=== PATIENT | female | born 1990 ===

== ENCOUNTER 2016-11-21 19:51 | Inpatient (IN) | payer BC, OTHER ==
[2016-11-21 20:31] VITALS: BMI 31.4
--- NOTE | 2016-11-21 20:52 | OBHP ---
Datetime: 11/21/2016 20:39 IP Adm Impression: Term, intrauterine IP Adm Impression Other: Irregular Contractions IP Admit Plan: Admit to unit; Initiate labor protocol Admit Comment, IP Provider: 26yo with IUP at 39.6wks presents ere today c/o intermittent pelvic cramps. She also reported not feeling good movements. She reports an uncomplicated c ourse. GBS -Negative. [place]- Occasional ctxs, FHR- category 1 , Vtx, Cx- 0/30/-3. Assesment: IUP at 39+ weeks with Pelvic pain Plan as Per Dr Gonzalez, Admit to Labor and delivery For cervical ripening with Cervidil. Pelvic Type - PN: Adequate Extremities - PN: Normal Abdomen - PN: Normal Back - PN: Normal Breast - PN: Normal Lungs - PN: Normal Heart - PN: Normal Thyroid - PN: Normal Neurologic - PN: Normal HEENT - PN: Normal General - PN: Normal Presentation-Admit: Vertex FHR - Baseline A Provider: 130 Membranes, Provider: Intact Comments, ACOG Physical Exam: Abd: Soft, NT, BS- Present Gestation - Est Wks by US: 39.6 EGA AdmitDate IP: 39.6 Vital Signs Provider: Reviewed IP Chief Complaint: Uterine contractions; Decreased movement; Maternal discomfort NICHD Variability Prov Fetus A: Moderate 6-25bpm NICHD Accel Fetus A IP Provider: [id number] FHR Category Provider Fetus A: Category I NICHD Decel Fetus A IP Provider: None Dilatation, Provider: 0 Effacement, Provider: 30 Station, Provider: -3 Genitourinary Exam: Normal DTRs - PN: Normal
[2016-11-21] MEDS: Lactated Ringer's 1,000 ML IV SCH (20:55)
[2016-11-21] MEDS ORDERED: Azithromycin 500mg/250ML NS 500 MG/250 ML BAG IVPB ONE (21:00)
[2016-11-21 21:20] LABS: BASO % 0.2 % (0.0-2.0); EOS # 0.1 K/uL (0.0-0.7); EOS % 0.8 % (0.0-4.0); HEMOGLOBIN 13.5 g/dL (11.0-16.0); LYMPH # 1.9 K/uL (1.0-4.3); LYMPH % 19.4 % (20.0-40.0); MEAN CORPUSCULAR HEMOGLOBIN 31.6 pg (27.0-31.0); MEAN CORPUSCULAR HGB CONC 33.6 g/dL (33.0-37.0); MEAN PLATELET VOLUME 8.8 fL (7.2-11.7); MONO # 0.8 K/uL (0.0-0.8); MONO % 8.4 % (0.0-10.0); NEUT # 7.2 K/uL (1.8-7.0); NEUT % 71.2 % (50.0-75.0); NRBC % 0.1 % (0.0-2.0); RBC 4.29 Mil/uL (3.80-5.20); RED CELL DISTRIBUTION WIDTH 14.1 % (11.5-14.5)
[2016-11-21 21:26] LABS: SQUAMOUS EPITHIAL 4 /hpf (0-5); URINE AMORPHOUS SEDIMENT OCC /ul (<OCC); URINE BACTERIA RARE (<OCC); URINE BILIRUBIN NEGATIVE (NEGATIVE); URINE BLOOD 1+ (NEGATIVE); URINE CALCIUM OXALATE CRYSTALS OCC /hpf (<OCC); URINE CLARITY Hazy (Clear); URINE COLOR Yellow (YELLOW); URINE GLUCOSE (UA) NORMAL (Normal); URINE LEUKOCYTE ESTERASE NEG Leu/uL (Negative); URINE NITRATE NEGATIVE (NEGATIVE); URINE PROTEIN NEGATIVE (NEGATIVE); URINE UROBILINOGEN NORMAL mg/dL (0.2-1.0)
[2016-11-21 21:28] LABS: ALBUMIN 3.3 g/dL (3.5-5.0)
[2016-11-21 21:31] LABS: AST/SGOT 20 U/L (14-36); GFR AFRICAN-AMERICAN > 60; GFR NON-AFRICAN AMERICAN > 60
[2016-11-21 21:32] LABS: ALB/GLOB RATIO 0.9 (1.0-2.1); ALT/SGPT 21 U/L (9-52); BLOOD UREA NITROGEN 9 mg/dL (7-17); CALCIUM 9.4 mg/dl (8.6-10.4)
[2016-11-22] MEDS ORDERED: Nalbuphine 20 mg/ml Inj (1 ml) ONE ×2 (04:32→06:50)
[2016-11-22] MEDS: Lactated Ringer's 1,000 ML IV SCH (04:52)
[2016-11-22] MEDS ORDERED: Nalbuphine 20 mg/ml Inj (1 ml) IVP ONE (06:46)
[2016-11-22] MEDS ORDERED: Bupivacaine 0.125%/FentaNYL 200 ML EPI ONE (07:54)
[2016-11-22] MEDS ORDERED: Nalbuphine 20 mg/ml Inj (1 ml) IVP SCH (08:00)
[2016-11-22] MEDS ORDERED: Acetaminophen-Codeine 300/30 mg Tab PO PRN (15:26)
[2016-11-22] MEDS ORDERED: Benzocaine/Menthol 20%-0.5% Topical Spray (60 ml) TOP PRN (15:32)
[2016-11-22] MEDS: Benzocaine/Menthol 20%-0.5% Topical Spray (60 ml) TOP PRN (17:11)
--- NOTE | 2016-11-22 19:36 | OBDS ---
[facility]IV[facility] PERSONNEL Delivery Doctor: Loren Gonzalez MD. Dealmaker: Tanika Finley RN Anesthesiologist: Geo LLOYD MATERNAL INFORMATION Delivery Anesthesia: Epidural Medications in Delivery: Pitocin Estimated Blood Loss (ml): 300 Placenta Cultured: No Maternal Complications: None RN Comments: to a live baby girl, attended to by Danilo Cazares and Eloy Mckeon RN. Baby on mother's a bdomen. 9:9, stable. Provider Comments: +2 on complete, pushing well to , shoulder delivered with maternal pushin g, no dystocia, VAMSHI, left shoulder anterior, placenta spontaneous and intact LABOR SUMMARY EDC: 11/22/2016 00:00 No. Babies in Womb: 1 Attempted: No Labor Anesthesia: Epidural LABOR INFORMATION Reason for Induction: Postterm Onset of Labor: 11/22/2016 07:00 Complete Dilatation: 11/22/2016 12:11 Cervical Ripening Agents: Cervidil Oxytocin: N/A Group B Beta Strep: Negative Antibiotics # of Doses: 1 Antibiotics Time of Last Dose: 2210 11/21/16 Steroids Given: None Reason Steroids Not Administered: Not Applicable MEMBRANES Membranes Rupture Method: Spontaneous Rupture of Membranes: 11/22/2016 11:34 Length of Rupture (hrs): 1.23 Amniotic Fluid Color: Light Meconium Amniotic Fluid Amount: Moderate Amniotic Fluid Odor: Normal STAGES OF LABOR Stage 1 hrs: 5 Stage 1 min: 11 Stage 2 hrs: 0 Stage 2 min: 37 Stage 3 hrs: 0 Stage 3 min: 6 Total Time in Labor hrs: 5 Total Time in Labor min: 54 VAGINAL DELIVERY Episiotomy: None Laceration Extension: Second Degree Laceration Type: Perineal Other Laceration: n/a Laceration Repair: Yes Laceration Repair Note: repaired figure of eight with 2-0 chromic deeper tissue, 2-0 chromic running locked fashion Initial Vag Sponge Count: 10 Final Vag Sponge Count: 10 Initial Vag Sharps Count: 2 Final Vag Sharps Count: 2 Sponge Count Correct: Yes Sharps Count Correct: Yes BABY A INFORMATION Infant Delivery Date/Time: 11/22/2016 12:48 Method of Delivery: Vaginal Born in Route : No : N/A Forceps: N/A Vacuum Extraction: N/A Shoulder Dystocia : No SHOULDER DYSTOCIA BABY A Infant Delivery Date/Time: 11/22/2016 12:48 PRESENTATION/POSITION BABY A Presentation: Cephalic Cephalic Presentation: Vertex Vertex Position: Left Occipital Anterior Breech Presentation: N/A PLACENTA INFORMATION BABY A Placenta Delivery Time : 11/22/2016 12:54 Placenta Method of Delivery: Spontaneous Placenta Status: Delivered SCORES BABY A Heart Rate 1 min: >100 bpm Resp Effort 1 min: Good Cry Reflex Irritability 1 min: Cough or Sneeze or Pulls Away Muscle Tone 1 min: Active Motion Color 1 min: Body [place], Extremities Blue SCORE 1 MIN: 9 Heart Rate 5 min: >100 bpm Resp Effort 5 min: Good Cry Reflex Irritability 5 min: Cough or Sneeze or Pulls Away Muscle Tone 5 min: Active Motion Color 5 min: Body [place], Extremities Blue SCORE 5 MIN: 9 INFORMATION BABY A Gestational Age at Delivery: 40.0 Gestational Status: Term Outcome : Liveborn Condition : Stable Infant Sex: Female IDENTIFICATION/MEDS BABY A ID Band Number: [id number] ID Band Location: Left Leg; Left Arm Sensor Applied: Yes Sensor Number: [id number] Sensor Location : Cord Clamp Vitamin K Given : Not Given Erythromycin Given: Not Given WEIGHT/LENGTH BABY A Birthweight (gms): 3470 Infant Weight (lb): 7 Infant Weight (oz): 10 Length Inches: 19.50 Length cms: 49.5 CORD INFORMATION BABY A No. Cord Vessels: 3 Nuchal Cord : N/A Nuchal Cord Other: n/a True Knot: 0 Cord Blood Taken: Yes Suction: Mouth; Nose ASSESSMENT BABY A Complications: None Physical Findings at Delivery: Within Normal Limits Infant Respirations: Appears Normal Manager Mac/ALS Called : No Transferred To: Remains with Mother
[2016-11-23 09:22] LABS: MEAN CORPUSCULAR HEMOGLOBIN 31.5 pg (27.0-31.0); MEAN PLATELET VOLUME 8.9 fL (7.2-11.7)
[2016-11-23 09:32] LABS: MEAN CELL VOLUME 95.1 fL (81.0-99.0); MEAN CORPUSCULAR HGB CONC 33.1 g/dL (33.0-37.0); RBC 3.61 Mil/uL (3.80-5.20); RED CELL DISTRIBUTION WIDTH 13.8 % (11.5-14.5)
[2016-11-23 09:42] LABS: HEMOGLOBIN 11.4 g/dL (11.0-16.0); WHITE BLOOD COUNT 16.5 K/uL (4.8-10.8)
[2016-11-23 16:07] VITALS: PULSE 99
[2016-11-24 00:30] VITALS: BP 90/59; RESP 20; TEMP 98.5; O2SAT 99
[2016-11-24] MEDS: Benzocaine/Menthol 20%-0.5% Topical Spray (60 ml) TOP PRN (09:37)
--- NOTE | 2016-11-24 19:02 | OBDCSUM ---
Datetime: 11/24/2016 11:34 Discharged to, Provider: Home Follow up at, Provider: Dr Gonzalez Disch Instr Activity: Normal activity Disch Instr Diet: Regular Discharge Diet restrict Prov: none Discharge Instructions, Provider: Routine instructions given Discharge Diagnosis, Provider: Term Delivered Discharge Time: 11/24/2016 11:34 Follow up in weeks, Provider: 6 wks Disch Referrals: None Contraception discussed, Prov: Yes Disch Activity Restrictions: No exercising; No lifting; No sexual activity; Nothing in vagina - Inte rcourse, tampons, douche
--- NOTE | 2016-11-24 19:04 | OBPPN ---
Datetime: 11/24/2016 19:01 PP Progress Note Prov: stable for dsicharge Datetime: 11/23/2016 03:00 PP Pain Prov: Within normal limits PP Nausea Prov: Denies PP Flatus Prov: Yes PP Breasts Prov: Normal PP Heart Prov: Normal PP Lungs Prov: Normal PP Abdomen/Uterus Prov: Normal PP Lochia Prov: Normal PP Vulva/Perineum Prov: Normal PP CVA Tenderness Prov: Normal PP Extremities Prov: Normal PP Impression Prov: Normal progression PP Plan Prov: Continue present management
== END 2016-11-24 19:45 | disposition home or self-care (01) | DRG 775 ==
LOC: C.EROB 19:51 → C.4D 20:31 → C.4M 11-22 15:17
PROVIDERS: ADMIT Obstetrics & Gynecology; ATTEND Obstetrics & Gynecology
PROC: 10E0XZZ Delivery of Products of Conception, External Approach (ICD-10-PCS; principal; 2016-11-22)
PROC: 0KQM0ZZ Repair Perineum Muscle, Open Approach (ICD-10-PCS; 2016-11-22)
DX: O77.0 Labor and delivery complicated by meconium in amniotic fluid (principal); O70.1 Second degree perineal laceration during delivery; Z3A.40 40 weeks gestation of pregnancy; Z37.0 Single live birth